=== PATIENT | female | born 1965 | race Caucasian/White ===

== ENCOUNTER 2021-03-15 02:04 | Inpatient (IN) | payer MEDICAID ==
[~2021-03-15] VITALS: Ht 162.6 cm; Wt 84.7 kg
[2021-03-15] VITALS (16 sets, daily range): BP systolic 125–165; BP diastolic 78–100; BMI 31.3
--- NOTE | ~2021-03-15 | HEMODYNAMI ---
PATIENT:DANGELO REHMAN MEDICAL RECORD: [id number] : 63 LOCATION:[facility] D.E10[facility]# [id number] ADMISSION DATE: 03/15/21 Generatedon:115:26 Patient name: DANGELO REHAMN Patient #: [id number] SSN: : Date of study: 03/15/2021 Page: Of Hemodynamic Procedure Report Patient Data Patient Demographics Procedure consent was obtained First Name: DANGELO Gender: Female Last Name: SHERIE : 1965 Patient #: [id number] Age: 55 year(s) Race: Unknown Additional ID: [id number] Contact details Address: [address] [place] [address] State: [place] City: [facility] Zip code: [address] Admission Admission Data Admission Date: 03/15/2021 Admission Time: 2:26 Admit Source: Other Room #: D.E10 Height (in.): 64 BSA: 1.87 (m2) Height (cm.): 162.56 BMI: 31.03 (kg/m2) Weight (lbs.): 180.78 Weight (kg.): 82 Lab Results Lab Result Date: 03/15/2021 Lab Result Time: 0:00 Biochemistry Name Units Result Min Max BUN mg/dl 13 --(--*-)-- 7 18 Creatinine mg/dl 0.8 --(-*--)-- 0.6 1.3 CBC Name Units Result Min Max Hemoglobin g/dl 14.1 --(*---)-- 13.5 17.5 Procedure Procedure Types Cath Procedure Diagnostic Procedure C [facility] w/Coronaries Sedation Charges Moderate Sedation 10-24 minutes Procedure Description Procedure Date Procedure Date: 03/15/2021 Procedure Start Time: 14:53 Procedure End Time: 15:22 Procedure Staff Name Function Shar Flores MD Performing Physician Aicha De Leon RT Monitor Itzel Goodman RN Nurse Leo Singleton RT Scrub Procedure Data Cath Procedure Fluoroscopy Diagnostic fluoroscopy Total fluoroscopy Time: 4.2 time: 4.2 min min Diagnostic fluoroscopy Total fluoroscopy dose: 751 dose: 751 mGy mGy Contrast Material Contrast Material Type Amount (ml) Isovue 370 74 Entry Location Entry Primary Successful Side Size Upsize Upsize Entry Closure Naranjo ccessful Closure Location (Fr) 1 (Fr) 2 (Fr) Remarks Device Remarks Radial Right 6 Fr Mechanical artery Short Compression Femoral Right 5 Fr Exoseal artery Estimated blood loss: 5 ml Diagnostic catheters Device Type Used For End Catheter Placement DIAGNOSTIC [place] 110cm 5 Left Coronary Fr catheter ([id number]) Angiography MULTIPACK JL 4.0 5Fr Left Coronary catheter Angiography MULTIPACK 3DRC 5Fr Procedure catheter DIAGNOSTIC 3DRC 5Fr Right Coronary catheter ([id number]) Angiography MULTIPACK Pigtail 5 Fr LV Angiography catheter Procedure Complications No complications Procedure Medications Medication Administration Route Dosage Oxygen etCO2 Nasal cannula 2 l/min Lidocaine 2% added to field 20 Heparin Flush Bag added to field 2 bags (1000units/500ml NS) 0.9% NaCl I.V. 100 ml/hr Radial Cocktail I.A. 1 syringe (Verapamil 2mg/Nitro 400mcg/Heparin 1500units) Versed I.V. 1 mg Fentanyl I.V. 50 mcg Versed I.V. 1 mg Fentanyl I.V. 50 mcg Versed I.V. 1 mg Lopressor I.V. 5 mg Versed I.V. 1 mg Hemodynamics Rest BSA: 1.87 (m2) O2 Consumption: Estimated: 186.59 (ml/min) O2 Consumption indexed : Estimated:99.78 (ml/min/m) Heart Rate: 80 (bpm) Pressure Samples Time Site Value (mmHg) Purpose Heart Use Rate(bpm) 15:10 AO 148/108(123) Snapshot 80 15:16 LV 157/20,22 Snapshot 67 15:16 AO 160/75(119) Pullback 70 15:16 LV 151/19,26 Pullback 70 Gradients Valve Time Site 1 Site 2 Mean SEP/DFP Peak To Heart Use (mmHg) (sec/min) Peak Rate (mmHg) (bpm) Aortic 15:16 LV AO 0 12 0 70 151/19,26 160/75(119) Calculations Valve P-P Mean Valve Index Valve Source Name Gradient Area Flow (cm2) Aortic 0 0 0 0 Snapshots Pre Cath Intra NCS Post Cath Vital Signs Time Heart Resp SPO2 etCO2 NIBP (mmHg) Rhythm Pain Sedation Rate (ipm) (%) (mmHg) Status Level (bpm) 14:46:26 74 22 97 0 157/101(122) NSR 0 (11) 10(A) , No pain 14:50:40 88 19 97 0 172/99(110) NSR 0 (11) 10(A) , No pain 14:54:56 74 19 96 35 162/102(121) NSR 0 (11) 10(A) , No pain 14:59:12 81 20 92 32.8 147/89(116) NSR 0 (11) 10(A) , No pain 15:03:24 78 21 95 34.3 140/87(112) NSR 0 (11) 9(A) , No pain 15:07:32 72 22 95 36.5 147/95(122) NSR 0 (11) 9(A) , No pain 15:11:44 79 18 96 28.3 159/89(118) NSR 0 (11) 9(A) , No pain 15:16:00 77 14 96 35 152/88(118) NSR 0 (11) 10(A) , No pain 15:20:12 66 20 97 32.8 142/91(118) NSR 0 (11) 10(A) , No pain Medications Time Medication Route Dose Verified Delivered Reason Notes Effectiveness by by 14:48:56 Oxygen etCO2 2 l/min Shar Robbins used for Nasal St Justus Goodman RN procedure cannula 14:49:02 Lidocaine 2% added 20ml Shar Myles for local to vial [facility] anesthetic field MD CASTORENA 14:49:07 Heparin Flush added 2 bags Shar Myles used for Bag to [facility] procedure (1000units/500ml field MD CASTORENA NS) 14:49:15 0.9% NaCl I.V. 100 Shar Robbins Per ml/hr St Justus Goodman RN physician 14:53:00 Versed I.V. 1 mg Shar Robbins for sedation St Justus Goodman RN, MD 14:53:06 Fentanyl I.V. 50 mcg Shar Robbins for sedation St Justus Goodman RN, MD 14:56:22 Radial Cocktail I.A. 1 Shar Myles for (Verapamil syringe [facility] vasodilation 2mg/Nitro MD CASTORENA 400mcg/Heparin 1500units) 15:01:01 Fentanyl I.V. 50 mcg Shar Robbins for sedation St Justus Goodman RN, MD 15:01:58 Versed I.V. 1 mg Shar Colemanie for sedation St Justus Goodman RN, MD 15:09:06 Versed I.V. 1 mg Shar Buffie for sedation St Justus Goodman RN, MD 15:12:50 Lopressor I.V. 5 mg Shar Colemanie used for St Justus Goodman RN procedure 15:16:29 Versed I.V. 1 mg Shar Buffie for sedation St Justus Goodman RN, MD Procedure Log Time Note 14:28:35 Admit Source: Other 14:28:41 Procedure Status Elective Heart Cath (OP). 14:28:44 Leo Singleton RT(R) sent for patient. Start room use. 14:29:16 Time tracking: Regular hours (M-F 7:00 - 5:00) 14:29:21 Plan of Care:Hemodynamics will remain stable., Cardiac rhythm will remain stable., Comfort level will be maintained., Respiratory function will remain adequate., Patient/ family verbilizes understanding of procedure., Procedure tolerated without complication., Recovers from procedure without complications.. 14:33:52 Patient Weight : 180.78 lbs 14:33:58 Patient Height : 64 inches 14:34:38 Lab Result : BUN 13 mg/dl 14:34:38 Lab Result : Hemoglobin 14.1 g/dl 14:34:38 Lab Result : Creatinine 0.8 mg/dl 14:35:14 Patient received from Pre/Post Procedure Room to [facility] 1 Alert and oriented. Tansferred to table in Supine position. 14:35:16 Signed procedure consent form obtained from patient. 14:35:17 Warm blankets applied, and grant hugger turned on for patient comfort. 14:35:18 Correct patient and procedure confirmed by team. 14:35:18 ECG and BP/O2 sat monitors applied to patient. 14:45:21 Vital chart was started 14:45:25 Rhythm: sinus rhythm 14:45:27 Full Disclosure recording started 14:45:37 H&P Date Dictated: 03/15/2021 Within 30 days and on chart., H&P Addendum completed by physician on day of procedure. (MUST COMPLETE FOR ALL OUTPATIENTS). 14:45:39 Pre-procedure instructions explained to patient. 14:45:40 Pre-op teaching completed and patient verbalized understanding. 14:45:42 Family in waiting room. 14:45:55 Patient NPO since Midnight. 14:45:59 Is the patient allergic to Iodine/contrast media? No. 14:46:02 Is patient on blood thinner?No 14:46:12 Patient diabetic? Yes. 14:46:15 If diabetic: On Metformin? No 14:46:19 Previous problem with sedation/anesthesia? No ? 14:46:24 Snore? No 14:46:25 Sleep apnea? No 14:46:26 Deviated septum? No 14:46:28 Opens mouth fully? Yes 14:46:29 Sticks out tongue? Yes 14:46:31 Airway obstruction? Yes aSTHMA 14:46:43 Dentures? No ? 14:47:00 Pre procedure: right dorsailis pedis pulse 2+ Normal; easily identifiable; not easily obliterated 14:47:03 Modified Jeramie's test Ulnar < 7 seconds 14:47:04 Patient pain scale 0/10 ?. 14:47:13 IV patent on arrival in right forearm with 0.9% NaCl at [facility]. 14:47:16 Lab results completed and on chart. 14:47:20 Risk of Mortality: 0.1 14:47:30 Risk of blood transfusion: 0.4 14:47:33 Risk of CALLI: 0.2 14:47:36 Right Radial & Right Groin area was prepped with chlora-prep and draped in sterile fashion 14:47:37 Alarms reviewed by R. N. 14:47:37 Sharps counted by scrub and verified by R.N. 14:47:41 Use device set Radial Dx or PCI 14:47:42 ACIST Syringe (75029) opened to sterile field. 14:47:42 Medline Cath Pack ([id number]) opened to sterile field. 14:47:43 Bag Decanter () opened to sterile field. 14:47:43 ACIST Hand Control (13407) opened to sterile field. 14:47:43 ACIST Manifold (94033) opened to sterile field. 14:47:44 MBrace Wrist Support ([id number]) opened to sterile field. 14:47:48 SHEATH 6FR RAIN (4846406) opened to sterile field. 14:47:49 EMERALD Guide Wire (926-082) opened to sterile field. 14:48:56 Oxygen 2 l/min etCO2 Nasal cannula was administered by Itzel Goodman RN; used for procedure; Verbal order read back and verified. 14:49:02 Lidocaine 2% 20ml vial added to field was administered by Shar Flores MD; for local anesthetic; Verbal order read back and verified. 14:49:07 Heparin Flush Bag (1000units/500ml NS) 2 bags added to field was administered by Shar Flores MD; used for procedure; Verbal order read back and verified. 14:49:15 0.9% NaCl 100 ml/hr I.V. was administered by Itzel Goodman RN; Per physician; Verbal order read back and verified. 14:50:32 Baseline sample Acquired. 14:52:25 Final Timeout: patient, procedure, and site verified with staff and physician. All members of the team are in agreement. 14:52:28 Right Radial site verified by team. 14:52:31 Fire Safety Assessment: A--An alcohol-based skin anteseptic being used preoperatively., C--Open oxygen or nitrous oxide is being used., D--An ESU, laser, or fiber-optic light is being used. 14:52:35 Physical assessment completed. ASA score P 3 - A patient with severe systemic disease as per Shar Flores MD. 14:52:40 2) 60-89 Mildly reduced kidney function, and other findings (as for stage 1) point to kidney disease. 14:52:43 Maximum allowable contrast dose (3.7 X eGFR X 0.75)216 ml. 14:52:46 Sedation plan: IV Moderate Sedation Medication:Versed, Fentanyl 14:52:50 Zero performed for pressure channel P1 14:53:00 Versed 1 mg I.V. was administered by Itzel Goodman RN; for sedation; Verbal order read back and verified. 14:53:06 Fentanyl 50 mcg I.V. was administered by Itzel Goodman RN; for sedation; Verbal order read back and verified. 14:53:39 Procedure started. 14:53:44 Local anesthetic to right radial artery with Lidocaine 2% by Shar Flores MD.INITIAL ACCESS ONLY 14:55:16 A 6 Fr Short sheath was inserted into the Right Radial artery 14:56:02 A DIAGNOSTIC [place] 110cm 5 Fr catheter (779107) was advanced over the wire and used for Left Coronary Angiography.REMOVED UNABLE TO CANNULATE 14:56:22 Radial Cocktail (Verapamil 2mg/Nitro 400mcg/Heparin 1500units) 1 syringe I.A. was administered by Shar Flores MD; for vasodilation; Verbal order read back and verified. 14:56:54 GLIDE WIRE ANGLE 260cm (ZB1821) opened to sterile field. 14:57:11 GLIDE wire advanced. 14:59:00 Catheter removed. 14:59:27 Local anesthetic to right femoral artery with Lidocaine 2% by Shar Flores MD.ADDITIONAL ACCESS 15:00:44 1ST J WIRE DAMAGED TRYING TO GAIN ACCESS 15:00:56 SHEATH 5FR Tribune (AKI178) opened to sterile field. 15:00:58 DIAGNOSTIC Multipack 5Fr catheter set ([id number]) opened to sterile field. 15:01:01 Fentanyl 50 mcg I.V. was administered by Itzel Goodman RN; for sedation; Verbal order read back and verified. 15:01:58 Versed 1 mg I.V. was administered by Itzel Goodman RN; for sedation; Verbal order read back and verified. 15:03:02 DIAGNOSTIC WIRE .035 260cm J wire (474011) opened to sterile field. 15:04:40 DIAGNOSTIC WIRE .035 260cm J wire (479158) opened to sterile field. 15:05:12 2ND J WIRE DAMAGED TRYING TO GAIN ACCESS 15:06:46 GLIDE wire advanced. 15:07:23 WIRE REMOVED ACCESS ATTEMPT FAILED 15:08:09 A 5 Fr sheath was inserted into the Right Femoral artery 15:09:06 Versed 1 mg I.V. was administered by Itzel Goodman RN; for sedation; Verbal order read back and verified. 15:09:33 A MULTIPACK JL 4.0 5Fr catheter was advanced over the wire and used for Left Coronary Angiography. 15:12:06 Catheter removed. 15:12:50 Lopressor 5 mg I.V. was administered by Itzel Goodman RN; used for procedure; Verbal order read back and verified. 15:13:25 A MULTIPACK 3DRC 5Fr catheter was advanced over the wire and used for Procedure.REMOVED. DAMAGED 15:13:58 A DIAGNOSTIC 3DRC 5Fr catheter ([id number]) was advanced over the wire and used for Right Coronary Angiography. 15:14:39 Catheter removed. 15:14:54 A MULTIPACK Pigtail 5 Fr catheter was advanced over the wire and used for LV Angiography. 15:16:29 Versed 1 mg I.V. was administered by Itzel Goodman RN; for sedation; Verbal order read back and verified. 15:16:34 LV gram done using GRANADOS 15:16:35 LV hemodynamics recorded. 15:17:05 Catheter removed. 15:17:17 Sheath removed intact; hemostasis achieved with Exoseal to the Right Femoral artery. 15:17:26 EXOSEAL 5Fr (EX500) opened to sterile field. 15:17:29 ZEPHYR REGULAR TR BAND (318526) opened to sterile field. 15:17:31 Tegaderm 4 x 4 (1626W) opened to sterile field. 15:17:35 Procedure ended.(Physican Out) 15:17:46 Fluoroscopy time 04.20 minutes. 15:17:50 Fluoroscopy dose: 751 mGy 15:17:50 Flurop Dose total: 751 15:17:54 Dose Area Product 113 mGy/cm. 15:17:58 Contrast amount:Isovue 370 74ml. 15:18:00 Maximum allowable dose exceeded? No. 15:18:01 Sharps counted by scrub and verified by R.N. 15:18:08 Insertion/operative site no bleeding no hematoma. 15:18:13 Post-op/insertion site Right Femoral artery dressed using a 4 x 4 and Tegaderm. 15:18:20 Sheath removed intact; hemostasis achieved with Mechanical Compression to the Right Radial artery. 15:18:26 [place] band inflated with 12cc of air. 15:18:31 Post right femoral artery:stable, clean and dry 15:18:36 Post right radial artery:stable, clean and dry 15:18:37 Post Procedure Pulses reassessed and unchanged 15:18:43 Post-procedure physical assessment completed. ASA score P 3 - A patient with severe systemic disease as per Shar Flores MD. 15:18:46 Post procedure rhythm: unchanged. 15:18:48 Estimated blood loss: 5 ml 15:19:17 Post procedure instruction explained to patient.Patient verbalizes understanding. 15:19:18 Patient needs reinforcement of post procedure teaching. 15:19:56 Procedure type changed to Cath procedure, Diagnostic procedure, LHC, LHC w/Coronaries, Sedation Charges, Moderate Sedation 10-24 minutes 15:20:04 Procedure Complication : No complications 15:20:51 Procedure and supply charges have been captured, reviewed, submitted and are correct. 15:21:31 Vital chart was stopped 15:21:32 Operative report dictated upon procedure completion. 15:21:33 See physician's report for complete and final results. 15:21:35 Report given to Pre/Post Procedure Room. 15:21:38 Patient transfered to Pre/Post Procedure Room with Stretcher. 15:22:04 Procedure ended. 15:22:04 Full Disclosure recording stopped 15:22:58 Aicha Counts RT(R) was relieved by Aicha Counts RT(R) as monitoring person 15:23:24 Aicha Counts RT(R) was relieved by Aicha Counts RT(R) as monitoring person 15:25:38 Aicha Counts RT(R) was relieved by Aicha Counts RT(R) as monitoring person 15:25:54 Aicha Counts RT(R) was relieved by Aicha Counts RT(R) as monitoring person Device Usage Item Name Manufacture Quantity Catalog Hospital Part Current Minima l Lot# / Number Charge Number Stock Stock Serial# Code ACIST Acist 1 27767 071255 734988 419100 20 Syringe Medical (83799) Systems Inc Medline Medline 1 [id number] 762786 20657 073019 5 Cath Pack ([id number]) Bag Microtek 1 2001S 694703 02920 693879 5 Decanter Medical Inc. () ACIST Hand Acist 1 08873 172195 909403 674145 5 Control Medical (74112) Systems Inc ACIST Acist 1 35513 252357 596167 358984 5 Manifold Medical (11098) Systems Inc MBrace Advanced 1 140-0250-00 858681 58007 614943 5 Wrist Vascular Support Dynamics ([id number]) SHEATH 6FR Cardinal 1 7352307 461333 0516844 644309 5 [facility] (1089394) EMERALD Cardinal 1 140-973 619812 160060 444333 5 Guide Wire [facility] (513-254) DIAGNOSTIC Terumo 1 40-5013 837344 851949 432251 5 [place] 110cm 5 Fr catheter (120945) GLIDE WIRE Terumo 1 QQ9102 721118 853746 042315 5 ANGLE 260cm (XU9483) SHEATH 5FR Terumo 1 VFM087 033440 559266 324874 5 Tribune (RKE543) DIAGNOSTIC Cardinal 1 MP5352 039486 75950 861246 30 Multipack Health 5Fr catheter set (NR6787) DIAGNOSTIC St Too 2 641097 918657 637478 640425 30 WIRE .035 260cm J wire (762154) MULTIPACK Cardinal 1 905650 5 JL 4.0 5Fr Health catheter MULTIPACK Cardinal 1 462466 5 3DRC 5Fr Health catheter DIAGNOSTIC Cardinal 1 [id number] 323757 636649 914365 9 3DRC 5Fr Health catheter (103745O) MULTIPACK Cardinal 1 156550 5 Pigtail 5 Health Fr catheter EXOSEAL 5Fr Cardinal 1 EX500 641090 306893 357360 10 (EX500) Health ZEPHYR Cardinal 1 909846 940342 3571552 025980 5 REGULAR TR Health BAND (963363) Tegaderm 4 3M 1 1626W 529196 743135 496513 5 x 4 (1626W) Signature Audit Cando Stage Time Signature Unsigned Intra-Procedure 03/15/2021 Itzel Holcomb Counts 3:22:38 PM RN; Aicha RT(R) 03/15/2021 Counts RT(R) 3:25:16 PM Intra-Procedure 03/15/2021 Itzel Goodman RN 3:25:32 PM Intra-Procedure 03/15/2021 Aicha 3:25:46 PM Counts RT(R) Intra-Procedure 03/15/2021 Shar Hsu 3:26:14 PM Justus CASTORENA Signatures Performing Physician : Signature : Shar Flores MD Date : Time : Monitor : Aicha Signature : Counts RT Date : Time : Nurse : Jaredelio Goodman RN Signature : Date : Time : [place] [address] [place] [address]
[2021-03-15] MEDS ORDERED: LISINOPRIL20 MG PO (02:11)
[2021-03-15] MEDS ORDERED: COREG25 MG PO (02:11)
[2021-03-15 02:29] LABS: BASOPHILS 1.3 % (0-2); EOSINOPHILS 5.5 % (0-7); HEMATOCRIT 42.3 % (36.0-48.0); HEMOGLOBIN 14.1 g/dL (12-16); MCH 27.9 pg (26.0-34.0); MCHC 33.3 g/dL (31.0-37.0); MCV 83.7 fL (80.0-100.0); MEAN PLATELET VOLUME 8.1 fL (7.4-10.4); MONOCYTES 4.4 % (2-11); NEUTROPHILS 49.8 % (40-80); PLATELET COUNT 245 10x3/uL (130-400); RBC 5.05 10x6/uL (4.00-5.40); RDW 14.5 % (11.5-14.5); WBC 5.7 10x3/uL (4.8-10.8)
[2021-03-15 02:36] LABS: CALC OSMOLALITY 287 mosm/kg (275-300); CALCIUM 8.4 mg/dL (8.5-10.1); CHLORIDE - SERUM 104 mmol/L (98-107); CREATININE - SERUM 0.8 mg/dL (0.6-1.3); GLUCOSE 180 mg/dL (74-106); POTASSIUM - SERUM 4.5 mmol/L (3.5-5.1); SODIUM 142 mmol/L (136-145); UREA NITROGEN 13 mg/dL (7-18); eGFR NON AFRICAN AMERICAN 78 mL/min (90-120)
[2021-03-15 02:51] LABS: ALBUMIN 3.4 g/dL (3.4-5.0); ALKALINE PHOSPHATASE 60 U/L (30-120); ALT (SGPT) 21 U/L (10-68); BILIRUBIN - TOTAL 0.59 mg/dL (0.2-1.3); LIPASE 106 U/L (73-393); MAGNESIUM - SERUM 2.1 mg/dL (1.8-2.4); PRO BNP 2760 pg/mL (0-125); PROTEIN - SERUM 7.5 g/dL (6.4-8.2); THYROID STIMULATING HORMONE 7.45 uIU/mL (0.36-3.74); TROPONIN-I < 0.017 ng/mL (0.000-0.060)
--- NOTE | 2021-03-15 05:37 | NUR ---
PT AMBULATED TO AND FROM RESTROOM AT THIS TIME. URINE SENT TO LAB AT THIS TIME. 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 NAD NOTED. PT DENIES CURRENT CP BUT STATES THAT SHE DID HAVE CHEST PAIN EARLIER WHEN SHE WAS LAYING FLAT. EDUCATED PT ON USING CALL LIGHT AND INFORMING NURSE WHEN CHEST PAIN OCCURS. PT VERBALIZES UNDERSTANDING.
[2021-03-15 06:15] LABS: BILIRUBIN NEGATIVE (NEGATIVE); KETONE NEGATIVE (NEGATIVE); NITRITE NEGATIVE (NEGATIVE); UROBILINOGEN NORMAL mg/dL (< 2)
[2021-03-15 06:27] LABS: UDS - AMPHET NEGATIVE QUAL (NEGATIVE); UDS - BARB NEGATIVE QUAL (NEGATIVE); UDS - BENZO NEGATIVE QUAL (NEGATIVE); UDS - COCAINE NEGATIVE QUAL (NEGATIVE); UDS - OPIATE NEGATIVE QUAL (NEGATIVE); UDS - PCP NEGATIVE QUAL (NEGATIVE); UDS - THC NEGATIVE QUAL (NEGATIVE)
--- NOTE | 2021-03-15 08:14 | NUR ---
CLEMENCIA CRUZ AWARE OF CONSULT.
[2021-03-15 08:58] LABS: CHOL - HDL RATIO 6.1 ratio (2.3-4.1)
[2021-03-15] MEDS ORDERED: GABAPENTIN300 MG PO (13:10)
[2021-03-15] MEDS ORDERED: LEVOXYL175 MCG PO (13:12)
[2021-03-15] MEDS ORDERED: ISOSORBIDE MONO30 M1 PO (13:15)
[2021-03-15] MEDS ORDERED: MIRAPEX0.5 MG PO (13:15)
[2021-03-15] MEDS ORDERED: CHLORTHALIDONE25 MG PO (13:16)
[2021-03-15] MEDS ORDERED: ZETIA10 MG PO (13:18)
[2021-03-15] MEDS ORDERED: NORVASC10 MG PO (13:19)
[2021-03-15] MEDS ORDERED: ULTRAM50 MG PO (13:19)
[2021-03-15] MEDS ORDERED: LIPITOR80 MG PO (13:20)
[2021-03-15] MEDS ORDERED: PROVENTIL/2.5 MG/3 M INH (13:24)
[2021-03-15] MEDS ORDERED: NITROSTAT0.4 MG SL (13:26)
--- NOTE | 2021-03-15 15:30 | NUR ---
PT ARRIVES TO ROOM 1 VIA STRETCHER S/P ANGIOGRAM. SEE RADIOSONDE OPERATOR. PLACED ON MONITORS AND ALARMS ON. PT DENIES PAIN OR NEEDS. IV INFUSING PER ORDERS, CALL LIGHT WITHIN REACH
--- NOTE | 2021-03-15 15:45 | NUR ---
DR SANCHEZ TO BEDSIDE TO SEE PT NEW ORDERS RECIEVED
--- NOTE | 2021-03-15 15:45 | NUR ---
PT RIGHT GROIN SOFT WITHOUT OOZING OR BLEEDING EXTREMITY PINK AND WARM PEDAL PULSE PALPABLE, RIGHT ZBAND IN PLACE AND RADIAL PULSE PALPABLE MOVES FINGERS AND CAP REFILL WNL, PT DENIES PAIN OR NEEDS AT PRESENT, VSS, NSR, IIV INFUSING PER ORDERS, CALL LIGHT WITHIN REACH
--- NOTE | 2021-03-15 16:00 | NUR ---
EYES CLOSED AROUSES EASILY TO VERBAL, AA0X3, VSS, NSR WITH NO ECTOPY, RIGHT ZBAND IN PLACE DRESSING C/D/I RADIAL AND BRACHIAL PULSE PALPABLE, CAP REFILL , RIGHT GROIN SOFT WITH OOZING OR BLEEDING NO PALPABLE HEMATOMA, EXTREMITY WARM PINK AND WARM, PEDAL PULSE PALPABLE, PT DENIES PAIN OR NEEDS, IV INFUSING PER ORDERS, CALL LIGHT WITHIN REACH
--- NOTE | 2021-03-15 16:15 | NUR ---
PT RESTING QUIETLY, VSS, NSR, RIGHT GROIN SOFT WITHOUT OOZING OR BLEEDING, NO PALPALBE HEMATOMA, EXTREMITY WARM, PEDAL PULSE PALPABLE, RIGHT WRIST WITH ZBAND IN PLACE NO OOZING OR BLEEDING RADIAL PULSE PALPABLE, MOVES ALL FINGERS, PT DENIES PAIN OR NEEDS, CALL LIGHT WITHIN REACH
[2021-03-15 16:43] LABS: BASOPHILS 1.2 % (0-2); EOSINOPHILS 3.7 % (0-7); HEMOGLOBIN 13.8 g/dL (12-16); LYMPHOCYTES 34.6 % (15-50); MCHC 33.6 g/dL (31.0-37.0); MCV 83.2 fL (80.0-100.0); MEAN PLATELET VOLUME 7.9 fL (7.4-10.4); MONOCYTES 3.9 % (2-11); NEUTROPHILS 56.6 % (40-80); PLATELET COUNT 230 10x3/uL (130-400); RBC 4.93 10x6/uL (4.00-5.40); RDW 14.8 % (11.5-14.5); WBC 6.7 10x3/uL (4.8-10.8)
--- NOTE | 2021-03-15 16:53 | NUR ---
ANALYTICAL TECH AT BEDSIDE FOR ECHO
--- NOTE | 2021-03-15 16:56 | NUR ---
4CC AIR RELEASED FROM RIGHT ZBAND WITHOUT OOZING OR BLEEDING NOTED
--- NOTE | 2021-03-15 17:00 | NUR ---
SBP 165 NTG INCREASED TO 10MCG/MIN.
[2021-03-15 17:13] LABS: INR 1.04 (0.85-1.17); PROTIME 12.6 SECONDS (11.6-15.0)
--- NOTE | 2021-03-15 17:44 | NUR ---
ALL AIR RELEASED FROM RIGHT ZBAND WITH NO OOZING OR BLEEDING NOTED RADIAL PULSE PALPABLE, DENIES PAIN, CAP REFILL WNL, RIGHT GROIN SOFT OPSITE C/D/I SOME BRUISING NOTE AROUND DRESSING, EXTREMITY PINK AND WARM PEDAL PULSE PALPABLE, NTG GTT @ 10MCG/MIN SBP 155 HR 79 SATS 95% RA, IV INFUSING PER ORDER , CALL LIGHT WITHIN REACH
--- NOTE | 2021-03-15 17:50 | NUR ---
OPSITE APPLIED TO RIGHT WRIST NO BLEEDING OR OOZING NOTED RADIAL PULSE PALPABLE, RIGHT GROIN SOFT SLIGHT BRUISING NOTED AROUND OPSITE NO OOZING OF BLEEDING NOTED, PEDAL PULSE PALPABLE, PT VSS, NSR, DENIES PAIN OR NEEDS, TNG GTT REMAINS @ 10MCG/MIN FOR SBP 152/98. FACE TO FACE REPORT GIVEN TO SHADE RN, TRANSPORT PT TO [facility] 3
[2021-03-15 17:52] LABS: ALBUMIN 3.3 g/dL (3.4-5.0); ALKALINE PHOSPHATASE 59 U/L (30-120); ALT (SGPT) 22 U/L (10-68); BILIRUBIN - TOTAL 0.38 mg/dL (0.2-1.3); CALCIUM 8.1 mg/dL (8.5-10.1); CARBON DIOXIDE 29.8 mmol/L (21.0-32.0); CHLORIDE - SERUM 105 mmol/L (98-107); CHOLESTEROL, TOTAL 276 mg/dL (0-200); CREATININE - SERUM 0.8 mg/dL (0.6-1.3); GLUCOSE 133 mg/dL (74-106); PHOSPHOROUS 4.1 mg/dL (2.5-4.9); PRO BNP 4429 pg/mL (0-125); PROTEIN - SERUM 7.1 g/dL (6.4-8.2); SODIUM 139 mmol/L (136-145); T4 THYROXIN - FREE 0.96 ng/dL (0.76-1.46); THYROID STIMULATING HORMONE 7.96 uIU/mL (0.36-3.74); URIC ACID 3.5 mg/dL (2.6-7.2); eGFR NON AFRICAN AMERICAN 78 mL/min (90-120)
[2021-03-15 17:56] LABS: CALC OSMOLALITY 278 mosm/kg (275-300); POTASSIUM - SERUM 3.8 mmol/L (3.5-5.1); UREA NITROGEN 9 mg/dL (7-18)
--- NOTE | 2021-03-15 18:53 | NUR ---
pt recievedto room 1830 alert and oreinted, attached to monitor and alarms set
[2021-03-16] VITALS (59 sets, daily range): BP systolic 81–134; BP diastolic 46–78; Ht 162.6 cm; Wt 84.7 kg
[2021-03-16] MEDS ORDERED: NITROSTAT0.4 MG SL (00:19)
[2021-03-16] MEDS ORDERED: SYNTHROID175 MCG PO (00:20)
[2021-03-16 05:54] LABS: BASOPHILS 0.6 % (0-2); HEMATOCRIT 39.9 % (36.0-48.0); HEMOGLOBIN 13.5 g/dL (12-16); LYMPHOCYTES 21.3 % (15-50); MCH 28.2 pg (26.0-34.0); MCHC 33.8 g/dL (31.0-37.0); MCV 83.6 fL (80.0-100.0); MEAN PLATELET VOLUME 7.9 fL (7.4-10.4); MONOCYTES 4.7 % (2-11); NEUTROPHILS 71.4 % (40-80); PLATELET COUNT 236 10x3/uL (130-400); RBC 4.77 10x6/uL (4.00-5.40); RDW 14.9 % (11.5-14.5); WBC 7.7 10x3/uL (4.8-10.8)
[2021-03-16 06:22] LABS: ALBUMIN 3.3 g/dL (3.4-5.0); ALKALINE PHOSPHATASE 49 U/L (30-120); ALT (SGPT) 20 U/L (10-68); BILIRUBIN - TOTAL 0.71 mg/dL (0.2-1.3); CALCIUM 8.2 mg/dL (8.5-10.1); CARBON DIOXIDE 29.9 mmol/L (21.0-32.0); CHLORIDE - SERUM 104 mmol/L (98-107); CREATININE - SERUM 0.7 mg/dL (0.6-1.3); GLUCOSE 161 mg/dL (74-106); POTASSIUM - SERUM 4.1 mmol/L (3.5-5.1); SODIUM 139 mmol/L (136-145); eGFR NON AFRICAN AMERICAN > 90 mL/min (90-120)
[2021-03-16 06:29] LABS: CALC OSMOLALITY 280 mosm/kg (275-300); UREA NITROGEN 12 mg/dL (7-18)
--- NOTE | 2021-03-16 09:24 | OP ---
PATIENT NAME: DANGELO REHMAN MEDICAL RECORD: [id number] :63 [facility] ADMISSION DATE:03/15/21 SURGEON: JUMA GUERIN MD DATE OF OPERATION: 03/15/2021 PROCEDURE: left heart catheterization, selective coronary angiography, and right femoral artery approach. CATHETERS: A 5-Kinyarwanda sheath, 5/4 left and right Zelda, 5/4 pig. The procedure was well tolerated and the patient returned to the marroquin. Sheath removed. ExoSeal device was placed. FINDINGS: Left ventriculography shows anterior and anteroapical hypokinesis extending down to the inferior apex; however, approximately reduced 30-35%. CORONARY ANATOMY: 1. Left main tapers about 40% stenosis. 2. LAD has a proximal 70% stenosis, then a subtotal distally and fills via bridging collaterals as well as right to left collaterals questionable target distally. 3. Circumflex: The circumflex is somewhat a codominant system. Circumflex itself has a 90% stenosis of 2 OMs. Fair targets with about a 90% proximal stenosis. 3. Right coronary artery has a distal stenosis before the takeoff of a small PDA, it actually fills the LAD with right to left collaterals. IMPRESSION: Multivessel coronary artery disease, decreased LV systolic function, typical diabetic disease very diffuse. We will discuss with Dr. Mayes iBrendae. possible coronary bypass grafting. TRANSINT:[id number] Voice Confirmation ID: [id number] DOCUMENT ID: [id number] JUMA GUERIN MD at 0924 CC: [id number] DICTATION DATE: 03/15/21 1524 STORAGE FACILITY HOUSEKEEPER: 03/15/21 1700 ADM IN [facility] [address] [place] [address]
[2021-03-16 14:01] LABS: APTT 29.2 SECONDS (22.8-39.4)
[2021-03-16 14:03] LABS: INR 1.52 (0.85-1.17)
[2021-03-16 15:55] LABS: BASOPHILS 0.8 % (0-2); EOSINOPHILS 0.4 % (0-7); MCH 28.8 pg (26.0-34.0); MCHC 34.8 g/dL (31.0-37.0); MCV 82.7 fL (80.0-100.0); MEAN PLATELET VOLUME 7.5 fL (7.4-10.4); MONOCYTES 4.7 % (2-11); NEUTROPHILS 86.1 % (40-80); PLATELET COUNT 176 10x3/uL (130-400); RDW 14.6 % (11.5-14.5); WBC 8.1 10x3/uL (4.8-10.8)
[2021-03-16 16:02] LABS: HEMATOCRIT 28.7 % (36.0-48.0); RBC 3.47 10x6/uL (4.00-5.40)
[2021-03-16 16:14] LABS: ALBUMIN 3.1 g/dL (3.4-5.0); ALKALINE PHOSPHATASE 52 U/L (30-120); ALT (SGPT) 20 U/L (10-68); BILIRUBIN - TOTAL 0.87 mg/dL (0.2-1.3); CALC OSMOLALITY 286 mosm/kg (275-300); CARBON DIOXIDE 26.8 mmol/L (21.0-32.0); CHLORIDE - SERUM 108 mmol/L (98-107); CREATININE - SERUM 0.7 mg/dL (0.6-1.3); GLUCOSE 127 mg/dL (74-106); POTASSIUM - SERUM 3.5 mmol/L (3.5-5.1); SODIUM 143 mmol/L (136-145); UREA NITROGEN 12 mg/dL (7-18); eGFR NON AFRICAN AMERICAN > 90 mL/min (90-120)
--- NOTE | 2021-03-16 16:44 | NUR ---
1442: REC'D FROM OR VIA BED. CONNECTED TO VENT AND MONITOR. 1445: INITIAL VS OBTAINED. SEDATED WITH PROPOFOL. WRIST RESTRAINTS APPLIED RACHEL TO PREVENT SELF EXTUBATION. SEE FLOWSHEET FOR COMPLETE ASSESSMENT.
[2021-03-17] VITALS (62 sets, daily range): BP systolic 89–133; BP diastolic 49–78
[2021-03-17 05:11] LABS: BASOPHILS 0.7 % (0-2); EOSINOPHILS 0.6 % (0-7); HEMATOCRIT 28.3 % (36.0-48.0); HEMOGLOBIN 9.8 g/dL (12-16); LYMPHOCYTES 13.2 % (15-50); MCH 28.7 pg (26.0-34.0); MCHC 34.7 g/dL (31.0-37.0); MCV 82.9 fL (80.0-100.0); MEAN PLATELET VOLUME 7.9 fL (7.4-10.4); NEUTROPHILS 79.5 % (40-80); RBC 3.41 10x6/uL (4.00-5.40); RDW 14.6 % (11.5-14.5); WBC 8.9 10x3/uL (4.8-10.8)
[2021-03-17 05:14] LABS: PLATELET COUNT 213 10x3/uL (130-400)
[2021-03-17 05:24] LABS: ALBUMIN 2.9 g/dL (3.4-5.0); ALKALINE PHOSPHATASE 49 U/L (30-120); ALT (SGPT) 20 U/L (10-68); BILIRUBIN - TOTAL 0.69 mg/dL (0.2-1.3); CALC OSMOLALITY 283 mosm/kg (275-300); CALCIUM 7.3 mg/dL (8.5-10.1); CARBON DIOXIDE 25.3 mmol/L (21.0-32.0); CHLORIDE - SERUM 107 mmol/L (98-107); CREATININE - SERUM 0.7 mg/dL (0.6-1.3); GLUCOSE 164 mg/dL (74-106); MAGNESIUM - SERUM 2.2 mg/dL (1.8-2.4); PHOSPHOROUS 3.9 mg/dL (2.5-4.9); POTASSIUM - SERUM 3.4 mmol/L (3.5-5.1); PROTEIN - SERUM 5.9 g/dL (6.4-8.2); SODIUM 141 mmol/L (136-145); T4 THYROXINE 7.5 ug/dL (4.7-13.3); UREA NITROGEN 11 mg/dL (7-18); eGFR NON AFRICAN AMERICAN > 90 mL/min (90-120)
--- NOTE | 2021-03-17 06:15 | NUR ---
0600 TITRATING SEDATION DOWN IN ATTEMPT TO WEAN VENT PER DR. SANCHEZ 0615 RT IN ROOM VENT SETTINGS CHANGED TO SIMV. VSS PATIENT ROUSES TO VOICE AND FOLLOWING SIMPLE COMMANDS
--- NOTE | 2021-03-17 10:24 | NUR ---
1015: DR. SANCHEZ HERE. PACEMAKER TURNED OFF. UNDERLYTING RHYTHM SR.
--- NOTE | 2021-03-17 10:51 | NUR ---
1045: FRANKY DANIEL AND MANE LONGORIA.
--- NOTE | 2021-03-17 18:12 | NUR ---
1155: EXTUBATED AND PLACED ON O2 VIA NC @ 4 LPM. IS GIVEN AND INSTRUCTED ON USE. PULLS APPROX 5OOCC. 1700: ASSISTED TO SIDE OF BED. DANGLED APPROX 10MIN. IS ENCOURAGED. 750CC TOTAL VOLUME DONE.
--- NOTE | 2021-03-17 20:00 | NUR ---
PATIENT AWAKE AND ALERT. ORIENTED X 4. ASSESSMENT COMPLETED PER FLOW SHEET WITH NO ACUTE DISTRESS OBSERVED. MONITORS CONNECTED TO PATIENT WITH ALARMS SET. VSS. NSR ON MONITOR. MEDIASTINAL CHEST TUBES IN PLACE, PATENT, DRAINING SMALL AMOUNT OF SEROSANG FLUID INTO COLLECTION CHAMBER. NAEEM DRAIN INTACT/SECURE/PATENT AND COMPRESSED WITH SMALL AMOUNT OF SEROSANG FLUID IN BULB. IVF INFUSING PER ORDERS TO RIJ CVL. INSTRUCTED ON USE OF INCENTIVE SPIROMETER AND FLUTTER VALVE. PULLS 250 ON I.S AT THIS TIME . CALL LIGHT IN REACH AND ABLE TO UTILIZE TO MAKE NEEDS KNOWN.
[2021-03-18] VITALS (24 sets, daily range): BP systolic 107–146; BP diastolic 57–81
[2021-03-18 05:18] LABS: BASOPHILS 0.1 % (0-2); EOSINOPHILS 0.4 % (0-7); HEMATOCRIT 28.4 % (36.0-48.0); HEMOGLOBIN 9.1 g/dL (12-16); IMMATURE GRANULOCYTES 0.5 % (0-5); LYMPHOCYTE ABS# 1.02 10x3/uL (1.18-3.74); LYMPHOCYTES 12.9 % (15-50); MCH 27.7 pg (26.0-34.0); MEAN PLATELET VOLUME 9.9 fL (7.4-10.4); MONOCYTES 6.3 % (2-11); NEUTROPHILS 79.8 % (40-80); RBC 3.28 10x6/uL (4.00-5.40); RDW 14.3 % (11.5-14.5); WBC 7.9 10x3/uL (4.8-10.8)
[2021-03-18 05:23] LABS: MCV 86.6 fL (80.0-100.0); PLATELET COUNT 143 10x3/uL (130-400)
[2021-03-18 05:36] LABS: ALBUMIN 2.5 g/dL (3.4-5.0); ALKALINE PHOSPHATASE 51 U/L (30-120); ALT (SGPT) 18 U/L (10-68); BILIRUBIN - TOTAL 0.63 mg/dL (0.2-1.3); CALC OSMOLALITY 278 mosm/kg (275-300); CALCIUM 7.3 mg/dL (8.5-10.1); CARBON DIOXIDE 29.8 mmol/L (21.0-32.0); CHLORIDE - SERUM 105 mmol/L (98-107); CREATININE - SERUM 0.7 mg/dL (0.6-1.3); GLUCOSE 142 mg/dL (74-106); MAGNESIUM - SERUM 2.2 mg/dL (1.8-2.4); PHOSPHOROUS 3.2 mg/dL (2.5-4.9); POTASSIUM - SERUM 3.8 mmol/L (3.5-5.1); PROTEIN - SERUM 6.1 g/dL (6.4-8.2); SODIUM 139 mmol/L (136-145); UREA NITROGEN 10 mg/dL (7-18); eGFR NON AFRICAN AMERICAN > 90 mL/min (90-120)
--- NOTE | 2021-03-18 06:21 | NUR ---
UP TO CHAIR X 2 ASSIST. PEPITO WELL. VSS. NSR ON MONITOR
[2021-03-18] MEDS ORDERED: NOVOLIN 70/30 110 ML SC (08:18)
--- NOTE | 2021-03-18 14:12 | NUR ---
1300: L RADIAL ARTERIAL LINE DC'D. 1420: DR. SANCHEZ HERE. MEDISTINAL TUBES DC'D. SITE DRESSED WITH 4X4 AND TEGADERM.
[2021-03-19] VITALS (24 sets, daily range): BP systolic 90–139; BP diastolic 52–80
[2021-03-19 04:47] LABS: BASOPHILS 0.7 % (0-2); EOSINOPHILS 3.5 % (0-7); HEMATOCRIT 25.8 % (36.0-48.0); HEMOGLOBIN 8.8 g/dL (12-16); LYMPHOCYTES 14.7 % (15-50); MCH 28.7 pg (26.0-34.0); MEAN PLATELET VOLUME 8.3 fL (7.4-10.4); MONOCYTES 5.1 % (2-11); PLATELET COUNT 153 10x3/uL (130-400); RBC 3.06 10x6/uL (4.00-5.40); RDW 14.6 % (11.5-14.5); WBC 6.8 10x3/uL (4.8-10.8)
[2021-03-19 05:03] LABS: MCV 84.2 fL (80.0-100.0)
[2021-03-19 05:34] LABS: ALBUMIN 2.3 g/dL (3.4-5.0); ALKALINE PHOSPHATASE 50 U/L (30-120); ALT (SGPT) 17 U/L (10-68); BILIRUBIN - TOTAL 0.67 mg/dL (0.2-1.3); CALC OSMOLALITY 270 mosm/kg (275-300); CALCIUM 7.5 mg/dL (8.5-10.1); CARBON DIOXIDE 29.7 mmol/L (21.0-32.0); CHLORIDE - SERUM 101 mmol/L (98-107); CREATININE - SERUM 0.6 mg/dL (0.6-1.3); GLUCOSE 136 mg/dL (74-106); PHOSPHOROUS 2.9 mg/dL (2.5-4.9); POTASSIUM - SERUM 3.9 mmol/L (3.5-5.1); SODIUM 135 mmol/L (136-145); UREA NITROGEN 10 mg/dL (7-18); eGFR NON AFRICAN AMERICAN > 90 mL/min (90-120)
[2021-03-19 05:42] LABS: MAGNESIUM - SERUM 1.6 mg/dL (1.8-2.4)
--- NOTE | 2021-03-19 09:22 | NUR ---
TEXTED DR. SANCHEZ AT 0824 REGARDING HIS NOTE TO RESUME COREG AFTER PRIMACOR WAS D/C'D. PRIMACOR IS STILL INFUSING AND CALLED TO CLARIFY IF COREG SHOULD BE GIVEN AND PRIMACOR D/C'D. NO TEXT BACK. CALLED [facility] TO CLARIFY. NO ORDERS RECEIVED. ALSO REPORTED THAT MS. REHMAN HAS BEEN IN AND OUT OF AFIB RVR. 400 AMIO PO GIVEN THIS AM.
--- NOTE | 2021-03-19 10:00 | NUR ---
DR. NIURKA BOBBY. REPORTED A FIB RVR THEN NSR. NO NEW ORDERS.
--- NOTE | 2021-03-19 12:00 | NUR ---
DR. SANCHEZ HERE. REPORTED AFIB, RVR. ORDERS RECEVIED TO STOP PRIMACOR, HOLD COREG. REPORTED MG AND HE ORDERS 1G MAG OVER 2 HOURS.
--- NOTE | 2021-03-19 12:06 | NUR ---
Nutrition Follow-up: POD 3 CABG. Poor appetite/PO intake. Agreed to try Glucerna at lunch today. Diet: Full Liquid -> Diabetic PO intake: 5% avg x 3 meals yesterday Wt: 196.2# (03/19) Labs noted: Na 135, Glu 136, Ca 7.5, Mg 1.6, Alb 2.3 Meds noted: Humalog, Senokot, Colace, KCl, electrolyte protocol -Encourage PO intake and honor food preferences within diet restrictions. -Glucerna sent with lunch today for pt trial. -Monitor wt. -RD will follow up within 2-3 days.
--- NOTE | 2021-03-19 12:50 | OP ---
PATIENT NAME: DANGELO REHMAN MEDICAL RECORD: [id number] :63 [facility]ATION[facility] ADMISSION DATE:03/15/21 SURGEON: FELIX SANCHEZ MD DATE OF OPERATION: 03/16/2021 SURGEON: Felix Sanchez MD PROCEDURE PERFORMED: Emergency coronary artery bypass graft times 3 (left internal mammary artery to LAD, reverse saphenous vein graft from aorta to posterolateral circumflex and aorta to posterior descending artery). PREOPERATIVE DIAGNOSES: Acute coronary syndrome, chronic LAD occlusion, anteroapical akinesis and ischemic cardiomyopathy. POSTOPERATIVE DIAGNOSES: Acute coronary syndrome, chronic LAD occlusion, anteroapical akinesis and ischemic cardiomyopathy. ANESTHESIA: General endotracheal anesthesia. ESTIMATED BLOOD LOSS: Total cardiopulmonary bypass with Cell Saver retransfusion, 1 platelet, 2 FFP. SPECIMENS: None. COMPLICATIONS: None. CONDITION: Stable. DISPOSITION: CV ICU. OPERATIVE FINDINGS: 1. Transesophageal echocardiography revealed 35% ejection fraction with mild MR. This was improved after separation from cardiopulmonary bypass on low dose epinephrine, Primacor, Levophed. 2. Anteroapical akinesis and LAD occlusion, but the LAD target vessel was about 1 mm and the internal mammary was anastomosed with more flow proximal in the vessel than distally where there was more calcification. 3. Diagonal vessel and ramus intermedius were small with severe disease and not grafted. 4. The posterolateral circumflex branch 2.0 mm. 5. PDA was large inferior wall vessel and it was a 1.5 mm vessel. OPERATIVE INDICATION: Acute coronary syndrome. PROCEDURE IN DETAIL: The patient was brought to the operating suite. General anesthesia was obtained. The patient was prepped and draped. Greater saphenous vein harvested endoscopically from the right lower extremity, side branches divided with electrocautery. Vessel ligated proximally and distally and removed, side branches were tied. Thin sites were oversewn. Leg was closed in 2 layers and later wrapped with an elastic wrap. Median sternotomy incision was made. Subcutaneous tissue divided with electrocautery. Sternum was divided with a saw. Left hemisternum was elevated. Left pleural cavity was entered. Left internal mammary artery and vein was taken down as a pedicle graft. OPERATIVE REPORT [id number] DANGELO REHMAN Sternal retractor was placed. Pericardium was opened. Heparin was given. The aorta was short and significantly deflected toward the left arch, in fact an arch cannula 20-Danish was used for cannulation in the distal ascending aorta, but had very good flow. The right heart was also somewhat distended and in retracting the heart to place the dual stage venous cannula, the patient became hypotensive and the patient was placed on cardiopulmonary bypass with appropriate activated clotting time. The internal mammary clipped distally and made ready for anastomosis. Left ventricular vent was placed, retrograde cardioplegia cannula was placed, antegrade cardioplegic cannula was placed. The patient was cooled. Crossclamp was placed. Cardioplegia was given antegrade and retrograde and then antegrade cardioplegia was repeated at 15 minutes including down the completed vein grafts. Distal anastomosis was performed in standard technique. Proximal anastomosis in single crossclamp technique, the patient was rewarmed. Cross clamp removed. Proximal and distal anastomotic sites inspected for bleeding. The patient returned to spontaneous rhythm, atrioventricular pacing and was weaned from cardiopulmonary bypass and stable. The patient was decannulated. Cannulation sites were oversewn. Protamine was given. Thorough irrigation was undertaken. Graft lay appropriately. Hemostasis was assured after protamine. Left chest was evacuated and irrigated. The internal mammary was placed out of harm's way through some pericardial fat. The drains were placed in the mediastinum and left pleural cavity. Sternum was closed with wires. Fascia was closed. Subcutaneous tissue was closed. Skin was closed. Dermabond was placed. The needle and sponge counts were reported as correct and the patient was taken to the ICU in stable condition. TRANSINT:[id number] Voice Confirmation ID: [id number] DOCUMENT ID: [id number] FELIX SANCHEZ MD at 1250 CC: RAMONA GUTIÉRREZ MD and JUMA GUERIN MD [id number] DICTATION DATE: 03/16/211916 ETL ANALYST DEVELOPER: 03/17/21 0108 ADM IN [facility] [address] [place] [address]
--- NOTE | 2021-03-19 16:51 | NUR ---
UP TO CHAIR FOR DINNER. BLOOD STILL INFUSING. C/O SOME DIZZIINESS ON STANDING, BUT HR STABLE.
--- NOTE | 2021-03-19 17:12 | NUR ---
DENIES WANTING TO ADVANCE HER DIET.
--- NOTE | 2021-03-19 18:05 | NUR ---
CONTACTED DR. SANCHEZ REGARDING LOPRESSOR ORDER. HR IN 80S AND BP 90/52. ORDERS TO HOLD IT.
[2021-03-20] VITALS (24 sets, daily range): BP systolic 100–130; BP diastolic 47–76
[2021-03-20 03:48] LABS: BASOPHILS 0.7 % (0-2); EOSINOPHILS 3.7 % (0-7); HEMATOCRIT 28.7 % (36.0-48.0); HEMOGLOBIN 10.1 g/dL (12-16); LYMPHOCYTES 21.6 % (15-50); MCH 29.6 pg (26.0-34.0); MCHC 35.1 g/dL (31.0-37.0); MCV 84.4 fL (80.0-100.0); MEAN PLATELET VOLUME 8.3 fL (7.4-10.4); MONOCYTES 7.5 % (2-11); NEUTROPHILS 66.5 % (40-80); RDW 14.7 % (11.5-14.5); WBC 6.7 10x3/uL (4.8-10.8)
[2021-03-20 03:53] LABS: ALBUMIN 2.3 g/dL (3.4-5.0); ALKALINE PHOSPHATASE 61 U/L (30-120); BILIRUBIN - TOTAL 0.93 mg/dL (0.2-1.3); CALCIUM 7.8 mg/dL (8.5-10.1); CARBON DIOXIDE 28.9 mmol/L (21.0-32.0); CHLORIDE - SERUM 102 mmol/L (98-107); CREATININE - SERUM 0.7 mg/dL (0.6-1.3); GLUCOSE 124 mg/dL (74-106); PHOSPHOROUS 3.4 mg/dL (2.5-4.9); SODIUM 137 mmol/L (136-145); eGFR NON AFRICAN AMERICAN > 90 mL/min (90-120)
[2021-03-20 03:55] LABS: UREA NITROGEN 13 mg/dL (7-18)
[2021-03-20 03:57] LABS: ALT (SGPT) 11 U/L (10-68); CALC OSMOLALITY 274 mosm/kg (275-300); PLATELET COUNT 211 10x3/uL (130-400)
--- NOTE | 2021-03-20 04:17 | NUR ---
PT SLEPT WELL DURING NIGHT. WOKE WITH CHEST XRAY, DENIES PAIN AT THIS TIME. SUBSTERNAL DRESSING CHANGED PER MD ORDER. PT DENIES COMPLAINTS OR UNMET NEEDS, DECLINES BATH AT THIS TIME, REQUEST LATER DURING DAY. CALL LIGHT WITHIN REACH.
--- NOTE | 2021-03-20 09:07 | NUR ---
PT ASSISTED UP IN CHAIR FROM BED AT 0800, NOTED HEART RHYTHM IN AND OUT OF AFIB FASTEST RATE 110. NOW BACK IN SINUS RHYTHM. DR SANCHEZ NOTIFIED OF THIS. NO NEW ORDERS RECIEVED. ALSO PT ASSISTED TO TRANSFER FROM BED TO CHAIR VIA MINIMAL ASSIST. WILL CONTINUE PLAN OF CARE.
--- NOTE | 2021-03-20 12:37 | NUR ---
SITTING UP IN CHAIR AWAKE VISITING WITH VISITOR AT THIS TIME. VSS. NO ACUTE DISTRESS NOTED. CALL LIGHT AND PERSONAL ITEMS IN REACH. WILL CONTINUE PLAN OF CARE.
[2021-03-20 16:04] LABS: POTASSIUM - SERUM 3.8 mmol/L (3.5-5.1)
[2021-03-20 19:08] LABS: IMMUNOGLOBULIN E 88 IU/mL (6-495)
--- NOTE | 2021-03-20 19:50 | NUR ---
PT ASSESSED, PT RESTING IN BED, AAOX4. MADE PLAN TO DO PARTIAL BED BATH AND LINEN CHANGE AND SET UP FOR BATH IN AM IN RECLINER, WITH COMPLETE LINEN CHANGE. WILL GIVE NORCO WITH 2100 MEDS PER PT REQUEST. CVL TO R IJ SL. INCISION TO RLE AND STERNUM CLEAN AND WELL APPROXIMATES, SUBSTERNAL DRESSING C/D/I. PULLED PT UP IN BED. CALL LIGHT AND PERSONAL ITEMS WITHIN REACH.
[2021-03-21] VITALS (23 sets, daily range): BP systolic 84–132; BP diastolic 48–87
[2021-03-21 05:36] LABS: HEMATOCRIT 31.5 % (36.0-48.0); HEMOGLOBIN 10.7 g/dL (12-16); MCH 28.9 pg (26.0-34.0); MEAN PLATELET VOLUME 8.2 fL (7.4-10.4); RBC 3.7 10x6/uL (4.00-5.40); RDW 14.9 % (11.5-14.5); WBC 5.8 10x3/uL (4.8-10.8)
[2021-03-21 05:51] LABS: ALBUMIN 2.4 g/dL (3.4-5.0); ALKALINE PHOSPHATASE 66 U/L (30-120); BILIRUBIN - TOTAL 0.86 mg/dL (0.2-1.3); CALC OSMOLALITY 277 mosm/kg (275-300); CALCIUM 8.1 mg/dL (8.5-10.1); CARBON DIOXIDE 30.1 mmol/L (21.0-32.0); CHLORIDE - SERUM 100 mmol/L (98-107); CREATININE - SERUM 0.6 mg/dL (0.6-1.3); GLUCOSE 130 mg/dL (74-106); POTASSIUM - SERUM 3.8 mmol/L (3.5-5.1); PROTEIN - SERUM 6.4 g/dL (6.4-8.2); SODIUM 138 mmol/L (136-145); UREA NITROGEN 13 mg/dL (7-18); eGFR NON AFRICAN AMERICAN > 90 mL/min (90-120)
[2021-03-21 05:52] LABS: ALT (SGPT) 18 U/L (10-68)
--- NOTE | 2021-03-21 06:27 | NUR ---
SUBSTERNAL DRESSING CHANGED, DAVOL WITH 50ML SERIOUS OUTPUT. PRN TYLENOL GIVEN FOR REPORTED HEADACHE. VITAL SIGNS STABLE. PT DECLINES TO GET OOB AT THIS TIME, REQUEST TO WAIT UNTIL BREAKFAST HAS ARRIVED, WILL REPORT TO ONCOMING RN.
--- NOTE | 2021-03-21 10:07 | NUR ---
REY DC @ 1000 WITHOUT COMPLICATION.
--- NOTE | 2021-03-21 10:16 | NUR ---
Nutrition Follow-up: POD 5 CABG. Reports appetite improving "a little bit". Drank some juice and Glucerna this AM. Agreed to try advanced diet. Wears upper dentures. Reports difficulty swallowing pills. -BM; +flatus. Diet: Full Liquid -> Diabetic, Glucerna TID WT: 189# (03/21); 185.1# (03/16) Labs noted: Glu 130, Ca 8.1, Alb 2.4 Meds noted: Humalog, Senokot, Colace, electrolyte protocol -Diet advanced to Diabetic, Dental Soft, Chopped; encourage PO intake and honor food preferences within diet restrictions. -Pt may benefit from an ST eval. -Monitor wt. -RD will follow up within 2 days.
[2021-03-22] VITALS (14 sets, daily range): BP systolic 93–124; BP diastolic 48–74
[2021-03-22 04:20] LABS: HEMATOCRIT 32.6 % (36.0-48.0); HEMOGLOBIN 10.9 g/dL (12-16); MCH 28.3 pg (26.0-34.0); MCHC 33.3 g/dL (31.0-37.0); RBC 3.84 10x6/uL (4.00-5.40); RDW 14.6 % (11.5-14.5); WBC 5.8 10x3/uL (4.8-10.8)
[2021-03-22 04:38] LABS: ALBUMIN 2.5 g/dL (3.4-5.0); ALKALINE PHOSPHATASE 59 U/L (30-120); ALT (SGPT) 20 U/L (10-68); BILIRUBIN - TOTAL 0.77 mg/dL (0.2-1.3); CALC OSMOLALITY 277 mosm/kg (275-300); CALCIUM 8.2 mg/dL (8.5-10.1); CARBON DIOXIDE 31.4 mmol/L (21.0-32.0); CHLORIDE - SERUM 101 mmol/L (98-107); CREATININE - SERUM 0.7 mg/dL (0.6-1.3); GLUCOSE 122 mg/dL (74-106); PHOSPHOROUS 4.2 mg/dL (2.5-4.9); POTASSIUM - SERUM 3.6 mmol/L (3.5-5.1); PROTEIN - SERUM 6.4 g/dL (6.4-8.2); SODIUM 138 mmol/L (136-145); UREA NITROGEN 14 mg/dL (7-18); eGFR NON AFRICAN AMERICAN > 90 mL/min (90-120)
--- NOTE | 2021-03-22 05:15 | NUR ---
PT UP TO BSC WITH STANDBY ASSIST 3 TIMES THIS SHIFT. 02 VIA NC WEANED TO 2L. R IJ CVL SL, DRESSING CHANGE COMPLETED AFTER BATH @1945, PT WENT TO BATHROOM AND FULL SOAP, WATER AND CHG BATH COMPLETED, PT HAIR WASHED, ORAL AND DENTURE CARE COMPLETED PER PT. PIV SITED TO L AC SL WITH GOOD BLOOD RETURN NOTED. PT GIVEN PRN PAIN MED AT BEDTIME PER REQUEST. REPORTS SLEEPING WELL. CALL LIGHT WITHIN REACH. SUBSTERNAL DRESSING CHANGE COMPLETED, DAVOL DRAIN WITH 40ML OUTPUT THIS SHIFT 25ML EMPTIED AT 2000 AND 15ML EMPTIED THIS A.M. PT DENIES COMPLAINTS OR UNMET NEEDS. CALL LIGHT WITHIN REACH.
--- NOTE | 2021-03-22 11:04 | NUR ---
REPORT CALLED TO [facility] ON MED II. CARE OF PT TRANSFERED TO [facility] @ 6398.
--- NOTE | 2021-03-22 19:30 | NUR ---
PT IN BED, AAO X 4, RESP EVEN AND UNLABORED, NO DISTRESS NOTED, CL IN REACH, SR UP X 2.
[2021-03-23 01:14] VITALS: BP 82/50
[2021-03-23 01:33] VITALS: BP 132/66
--- NOTE | 2021-03-23 06:19 | NUR ---
I have reviewed this patient and I concur with the Shift Assessment completed by the Licensed Practical Nurse today this shift.
[2021-03-23 06:41] VITALS: BP 113/70
[2021-03-23 07:12] LABS: HEMATOCRIT 34.7 % (36.0-48.0); HEMOGLOBIN 11.7 g/dL (12-16); MCH 28.5 pg (26.0-34.0); MCHC 33.9 g/dL (31.0-37.0); MCV 84.2 fL (80.0-100.0); MEAN PLATELET VOLUME 7.8 fL (7.4-10.4); RBC 4.12 10x6/uL (4.00-5.40); RDW 14.7 % (11.5-14.5); WBC 6.2 10x3/uL (4.8-10.8)
[2021-03-23 07:44] LABS: ALBUMIN 2.8 g/dL (3.4-5.0); ALKALINE PHOSPHATASE 68 U/L (30-120); ALT (SGPT) 19 U/L (10-68); CALC OSMOLALITY 276 mosm/kg (275-300); CALCIUM 8.6 mg/dL (8.5-10.1); CARBON DIOXIDE 27.7 mmol/L (21.0-32.0); CHLORIDE - SERUM 101 mmol/L (98-107); CREATININE - SERUM 0.7 mg/dL (0.6-1.3); GLUCOSE 128 mg/dL (74-106); MAGNESIUM - SERUM 2.1 mg/dL (1.8-2.4); PHOSPHOROUS 4.6 mg/dL (2.5-4.9); POTASSIUM - SERUM 3.4 mmol/L (3.5-5.1); SODIUM 137 mmol/L (136-145); UREA NITROGEN 14 mg/dL (7-18); eGFR NON AFRICAN AMERICAN > 90 mL/min (90-120)
[2021-03-23 11:16] VITALS: BP 103/69
--- NOTE | 2021-03-23 11:18 | TEE ---
PATIENT:DANGELO REHMAN MEDICAL RECORD: [id number] LOCATION:[address] AGE OF PATIENT: 55 ADMISSION DATE: 03/15/21 SEX: F REFERRING PHYSICIAN: INTERPRETING PHYSICIAN: JUMA GUERIN MD TRANSESOPHAGEAL ECHOCARDIOGRAM Date: 03/16/21 PARAM CHARGE Y INDICATIONS: CABG PREMEDICATIONS: PATIENT'S RESPONSE PROCEDURE DOPPLER MEASUREMENTS: LVIT LA 4.1 PA RA LVOT RVOT Asc. Ao AV Gradient Peak AV Mean AV Area MV Gradient Peak MV Mean MV Area INTERPRETATION: Doppler: 2-D: COLOR FLOW DOPPLER NORMAL SALINE STUDY: MISCELLANOUS: DIAGNOSIS: PLAN: Japanese Professor:3 Dr. Salas Timber Framer Helper: Estella HORNE COMMENTS: DATE OF SERVICE: INTRAOPERATIVE PARAM Preoperatively, LVH appears present. LV internal dimensions appear normal. LV appears to be globally hypokinetic with reduced EF 35% to 40%. Aortic valve is tricuspid with good valve excursion. Left atrium appears normal. Trace MR. Postoperatively, improved thickening of all segments with the LV function only TRANSESOPHAGEAL ECHOCARDIOGRAM REPORT [id number] DANGELO REHMAN mildly reduced 45%. Aortic valve is tricuspid with good valve excursion. Left atrium appears normal. Mitral valve appears normal. Trivial MR. TRANSINT:[id number] Voice Confirmation ID: [id number] DOCUMENT ID: [id number] at 1118 CC: [id number] DICTATION DATE: 03/19/21 164 RECONDITIONER: 03/19/21 2319 ADM IN [facility] [address] [place] [address]
[2021-03-23] MEDS ORDERED: AMIODARONE HCL200 MG PO (12:40)
[2021-03-23 16:04] VITALS: BP 95/63
--- NOTE | 2021-03-23 16:07 | MORECARE ---
CASE MANAGEMENT DISCHARGE SUMMARY PATIENT: DANGELO REHMAN UNIT: [id number] ADM DATE: 03/15/21 AGE: 55 : 63 SEX: F ROOM/BED: [facility] AUTHOR: STARR,DOC PHYSICIAN: REFERRING PHYSICIAN: SCAR CALDERON MD DATE OF SERVICE: 03/23/21 Case Management Discharge Planning Summary DCP REVIEW SUMMARY ANTICIPATED D/C DATE: 03/23/2021 EXPECTED LOS : 8 CASE STATUS: DCP Initiated INITIAL REVIEW: 03/15/2021 INITIAL REVIEWER: Viridiana Mann FINAL DISCHARGE DISPOSITION: : FINAL REVIEWER: FINAL REVIEW DATE: DCP Focus Questions & Answers QUESTION: ANSWER : PATIENT: DANGELO REHMAN ENCOUNTER: [id number] MEDICAL RECORD#: [id number] ADMISSION DATE: 03/15/2021 DISCHARGE DATE: ATTENDING MD: SCAR GALINDO : AGE: 55 MARITAL STATUS: S DC PLAN ID: [id number] FACILITY: [facility] PRINTED ON: 03/23/21 16:07 CT All edits/amendments must be made on the electronic document DICTATION DATE: 03/23/211606 CEMENTING BULK MATERIAL OPERATOR: DM 03/23/21 160 RPT#: [id number] DC DATE: STATUS: ADM IN [facility] [address] [place] [address] END OF REPORT
--- NOTE | 2021-03-23 16:21 | MORECARE ---
CASE MANAGEMENT DISCHARGE SUMMARY PATIENT: DANGELO REHMAN UNIT: [id number] ADM DATE: 03/15/21 AGE: 55 : 63 SEX: F ROOM/BED: D.2122 AUTHOR: STARR,DOC PHYSICIAN: REFERRING PHYSICIAN: SCAR CALDERON MD DATE OF SERVICE: 03/23/21 Case Management Discharge Planning Summary COMMENTS ENTERED DATE: 03/23/21 16:05 CT COMMENT TYPE: Discharge Planning REVIEWER: Viridiana Mann CM met with patient to complete discharge planning assessment and offer availability of needed services. Patient states that she lives independently at home with her prior to admission. Pt verified that home environment is safe and has electricity and running water. Patient denies need for transportation and state that they have funds for services and medications if needed. PCP is Daron and patient uses [facility]. CM offered and discussed home health, rehab services, and need for any medical equipment. Patient walk test perform and the need for home o2 was established. [facility] referral sent, pt requires ABG to qualify per Medicaid. ABG ordered, and will send values when available. Transportation home will be provided by once O2 need is address and established. MIKE form signed for refusal of additional services or needs at this time, placed on chart. MAP REVIEW SUMMARY ANTICIPATED D/C DATE: 03/23/2021 EXPECTED LOS : 8 CASE STATUS: DCP Initiated INITIAL REVIEW: 03/15/2021 INITIAL REVIEWER: Viridiana Mann FINAL DISCHARGE DISPOSITION: : FINAL REVIEWER: FINAL REVIEW DATE: MAP Focus Questions & Answers QUESTION: ANSWER : PATIENT: DANGELO REHMAN ENCOUNTER: [id number] MEDICAL RECORD#: [id number] ADMISSION DATE: 03/15/2021 DISCHARGE DATE: ATTENDING MD: SCAR GALINDO : AGE: 55 MARITAL STATUS: S DC PLAN ID: [id number] FACILITY: [facility] PRINTED ON: 03/23/21 16:21 CT All edits/amendments must be made on the electronic document DICTATION DATE: 03/23/211620 WAREHOUSE ENGINEER: SARAH 03/23/211620 RPT#: [id number] DC DATE: STATUS: ADM IN [facility] [address] [place] [address] END OF REPORT
--- NOTE | 2021-03-26 14:30 | MORECARE ---
CASE MANAGEMENT DISCHARGE SUMMARY PATIENT: DANGELO REHMAN UNIT: [id number] ADM DATE: 03/15/21 AGE: 55 : 63 SEX: F ROOM/BED: D.0762 AUTHOR: STARR,DOC PHYSICIAN: REFERRING PHYSICIAN: SCAR CALDERON MD DATE OF SERVICE: 03/26/21 Case Management Discharge Planning Summary COMMENTS ENTERED DATE: 03/23/21 16:05 CT COMMENT TYPE: Discharge Planning REVIEWER: Viridiana Mann CM met with patient to complete discharge planning assessment and offer availability of needed services. Patient states that she lives independently at home with her prior to admission. Pt verified that home environment is safe and has electricity and running water. Patient denies need for transportation and state that they have funds for services and medications if needed. PCP is Daron and patient uses [facility]. CM offered and discussed home health, rehab services, and need for any medical equipment. Patient walk test perform and the need for home o2 was established. [facility] referral sent, pt requires ABG to qualify per Medicaid. ABG ordered, and will send values when available. Transportation home will be provided by once O2 need is address and established. MIKE form signed for refusal of additional services or needs at this time, placed on chart. [facility] REVIEW SUMMARY ANTICIPATED D/C DATE: 03/23/2021 EXPECTED LOS : 8 CASE STATUS: DCP Initiated INITIAL REVIEW: 03/15/2021 INITIAL REVIEWER: Viridiana Mann FINAL DISCHARGE DISPOSITION: : FINAL REVIEWER: FINAL REVIEW DATE: OHP Focus Questions & Answers QUESTION: ANSWER : PATIENT: DANGELO REHMAN ENCOUNTER: [id number] MEDICAL RECORD#: [id number] ADMISSION DATE: 03/15/2021 DISCHARGE DATE: 03/23/2021 ATTENDING MD: SCAR GALINDO : AGE: 55 MARITAL STATUS: S DC PLAN ID: [id number] FACILITY: [facility] PRINTED ON: 03/26/21 14:30 CT All edits/amendments must be made on the electronic document DICTATION DATE: 03/26/211429 GENERAL ADJUSTER: SARAH 03/26/21 143 RPT#: [id number] DC DATE:03/23/21 STATUS: DIS IN [facility] [address] [place] [address] END OF REPORT
== END 2021-03-23 19:39 | disposition home or self-care (01) | DRG 233 ==
LOC: D.ER 02:04 → D.EDHOLD 02:26 → D.M2 02:26 → OBSVTIME 02:26 → D.M2 16:18 → D.CVICU 17:33 → D.M2 03-22 10:56
PROVIDERS: Family Medicine; Internal Medicine Cardiovascular Disease; Internal Medicine Interventional Cardiology; Internal Medicine Pulmonary Disease; Thoracic Surgery (Cardiothoracic Vascular Surgery); ADMIT Emergency Medicine; ATTEND Emergency Medicine
PROC: 0210099 Bypass Coronary Artery, One Artery from Left Internal Mammary with Autologous Venous Tissue, Open Approach (ICD-10-PCS; 2021-03-15)
PROC: 021109W Bypass Coronary Artery, Two Arteries from Aorta with Autologous Venous Tissue, Open Approach (ICD-10-PCS; 2021-03-15)
PROC: 06BP4ZZ Excision of Right Saphenous Vein, Percutaneous Endoscopic Approach (ICD-10-PCS; 2021-03-15)
PROC: B2111ZZ Fluoroscopy of Multiple Coronary Arteries using Low Osmolar Contrast (ICD-10-PCS; 2021-03-15)
PROC: B2151ZZ Fluoroscopy of Left Heart using Low Osmolar Contrast (ICD-10-PCS; 2021-03-15)
PROC: 4A023N7 Measurement of Cardiac Sampling and Pressure, Left Heart, Percutaneous Approach (ICD-10-PCS; principal; 2021-03-15 14:28)
DX: I25.110 Atherosclerotic heart disease of native coronary artery with unstable angina pectoris (principal); I50.21 Acute systolic (congestive) heart failure; I24.9 Acute ischemic heart disease, unspecified; I25.82 Chronic total occlusion of coronary artery; R29.898 Other symptoms and signs involving the musculoskeletal system; I25.5 Ischemic cardiomyopathy; E03.9 Hypothyroidism, unspecified; E11.65 Type 2 diabetes mellitus with hyperglycemia; E78.5 Hyperlipidemia, unspecified; E66.9 Obesity, unspecified; I11.0 Hypertensive heart disease with heart failure; I48.91 Unspecified atrial fibrillation; Z68.31 Body mass index [BMI] 31.0-31.9, adult; Z86.73 Personal history of transient ischemic attack (TIA), and cerebral infarction without residual deficits; Z72.0 Tobacco use